=== PATIENT | male | born 1955 | race Caucasian/White ===

== ENCOUNTER 2017-10-18 08:53 | Inpatient (IN) | payer OTHER ==
[~2017-10-18] VITALS: Ht 188 cm; Wt 116.1 kg
[2017-10-18 09:34] LABS: PLATELET COUNT 261 x10^3mcL (130-400); RED CELL DISTRIBUTION WIDTH 12.6 % (11.5-14.5)
[2017-10-18 09:38] LABS: UA SPECIFIC GRAVITY 1.015 (1.005-1.035); microscopic required? YES; urine erythrocyte TRACE (NEGATIVE)
[2017-10-18 09:46] LABS: FREE T4 1.03 ng/dL (0.76-1.46); FREE THYROXINE INDEX 2.3 ug/dL (1.4-4.5); T4(THYROXINE) 6.9 ug/dL (4.7-13.3)
[2017-10-18] MEDS ORDERED: ABILIFY5 M1 PO (10:25)
[2017-10-18] MEDS ORDERED: DIOVAN160 MG PO (10:25)
[2017-10-18] MEDS ORDERED: KLONOPIN1 MG PO (10:25)
[2017-10-18] MEDS ORDERED: GEMFIBROZIL600 MG PO (10:25)
[2017-10-18] MEDS ORDERED: FLO4 PO (10:26)
[2017-10-18] MEDS ORDERED: NOR10T PO (10:26)
[2017-10-18] MEDS ORDERED: ACYCLOVIR400 MG PO (10:26)
[2017-10-18 10:27] LABS: T3 TOTAL 1.03 ng/mL
[2017-10-18] MEDS ORDERED: FINASTERIDE5 M1 PO (10:27)
[2017-10-18] MEDS ORDERED: AMBIEN10 MG PO (10:28)
[2017-10-18 10:40] LABS: CALCIUM 9.2 mg/dL (8.5-10.1); CARBON DIOXIDE 22.5 mmol/L (21-32); CHLORIDE SERUM 104 mmol/L (98-107); GFR1 > 60 mL/min; GLUCOSE SERUM 123 mg/dL (74-106); POTASSIUM SERUM 3.6 mmol/L (3.5-5.1); SODIUM SERUM 139 mmol/L (136-145)
[2017-10-18 10:41] LABS: LIPASE 131 IU/L (73-393)
[2017-10-18 10:42] LABS: ALKALINE PHOSPHATASE 114 U/L (46-116); ALT/SGPT 36 U/L (16-63); AST/SGOT 77 U/L (15-37); BILIRUBIN TOTAL 0.56 mg/dL (0.20-1.00); TOTAL PROTEIN, SERUM 7.5 g/dL (6.4-8.2)
[2017-10-18 10:43] LABS: CHOLESTEROL 165 mg/dL (<200); CHOLESTEROL/HDL RATIO 3.5; HDL CHOLESTEROL 47 mg/dL (40-60); TRIGLYCERIDES 83 mg/dL (<150)
[2017-10-18 13:13] VITALS: BP 95/62
[2017-10-18 13:19] VITALS: Ht 188 cm; Wt 116.1 kg
[2017-10-18 13:50] LABS: AMPHETAMINE QUAL UR NONE DETECTED (See below)
[2017-10-18 17:26] VITALS: BP 100/62
[2017-10-19 05:59] VITALS: BP 96/59
[2017-10-19 06:30] LABS: BASOPHIL % 0.3 % (0-2); PLATELET COUNT 216 x10^3mcL (130-400); RED CELL DISTRIBUTION WIDTH 12.6 % (11.5-14.5)
[2017-10-19 06:34] LABS: CALCIUM 8.8 mg/dL (8.5-10.1); CARBON DIOXIDE 28.7 mmol/L (21-32); CHLORIDE SERUM 106 mmol/L (98-107); CREATININE SERUM 0.9 mg/dL (0.7-1.3); GFR1 > 60 mL/min; GLUCOSE SERUM 111 mg/dL (74-106); POTASSIUM SERUM 4.4 mmol/L (3.5-5.1); SODIUM SERUM 142 mmol/L (136-145)
[2017-10-19 08:51] VITALS: BP 100/62
[2017-10-19 17:00] VITALS: BP 98/59
[2017-10-19 21:36] VITALS: BP 102/61
[2017-10-20] VITALS (15 sets, daily range): BP systolic 103–124; BP diastolic 54–78
[2017-10-20 06:25] LABS: BASOPHIL % 0.3 % (0-2); PLATELET COUNT 225 x10^3mcL (130-400); RED CELL DISTRIBUTION WIDTH 12.6 % (11.5-14.5)
[2017-10-20 06:40] LABS: CALCIUM 8.8 mg/dL (8.5-10.1); CHLORIDE SERUM 106 mmol/L (98-107); CREATININE SERUM 0.8 mg/dL (0.7-1.3); GFR1 > 60 mL/min; GLUCOSE SERUM 97 mg/dL (74-106); SODIUM SERUM 142 mmol/L (136-145)
[2017-10-21 05:35] VITALS: BP 98/59
[2017-10-21 06:15] LABS: BASOPHIL % 0.2 % (0-2); PLATELET COUNT 219 x10^3mcL (130-400); RED CELL DISTRIBUTION WIDTH 12.1 % (11.5-14.5)
[2017-10-21 06:31] LABS: CARBON DIOXIDE 25.3 mmol/L (21-32); CHLORIDE SERUM 106 mmol/L (98-107); CREATININE SERUM 0.9 mg/dL (0.7-1.3); GFR1 > 60 mL/min; GLUCOSE SERUM 143 mg/dL (74-106); SODIUM SERUM 141 mmol/L (136-145)
[2017-10-21 09:47] VITALS: BP 100/57
[2017-10-21 13:58] VITALS: BP 102/54
== END 2017-10-21 16:30 | disposition short-term general hospital (02) | DRG 190 ==
LOC: ED 08:53 → DU 12:03
PROVIDERS: Family Medicine; General Practice; Specialist
PROC: B2111ZZ Fluoroscopy of Multiple Coronary Arteries using Low Osmolar Contrast (ICD-10-PCS; 2017-10-20)
PROC: 4A023N7 Measurement of Cardiac Sampling and Pressure, Left Heart, Percutaneous Approach (ICD-10-PCS; principal; 2017-10-20 09:00)
DX: I21.4 Non-ST elevation (NSTEMI) myocardial infarction (principal); E66.9 Obesity, unspecified; E78.00 Pure hypercholesterolemia, unspecified; E78.5 Hyperlipidemia, unspecified; I10 Essential (primary) hypertension; R73.03 Prediabetes; N20.0 Calculus of kidney; Z96.643 Presence of artificial hip joint, bilateral; F32.9 Major depressive disorder, single episode, unspecified; F41.9 Anxiety disorder, unspecified; R74.0 Nonspecific elevation of levels of transaminase and lactic acid dehydrogenase [LDH]; Z53.29 Procedure and treatment not carried out because of patient's decision for other reasons; I25.10 Atherosclerotic heart disease of native coronary artery without angina pectoris; Z88.2 Allergy status to sulfonamides; Z68.32 Body mass index [BMI] 32.0-32.9, adult
CPT/HCPCS: CLHCL; 83880; 84439; C1760; C1769; C1887; C1894; J1644; J1650; J1885; J2001; J2250; J2270; J2405; J3010; J3490; J7030; J7050; Q0092; Q9967